=== PATIENT | female | born 1990 | race Caucasian/White ===

== ENCOUNTER 2020-08-22 17:10 | Emergency (ER) | payer BC, SELFPAY ==
[2020-08-22 17:14] VITALS: BP 119/60; PULSE 88; RESP 16; TEMP 36.6; O2SAT 100
[2020-08-22 17:51] LABS: Add Urine Microscopic? YES; Appearance Urine Cloudy (Clear); Bacteria Urine Trace /hpf; Bilirubin Urine Negative (Negative); Blood Urine Negative (Negative); Color Urine Yellow (Yellow); Glucose Urine UA Negative (Negative); Ketones Urine Negative (Negative); Leukocyte Esterase Ur Negative LEU/UL (Negative); Mucus Urine Rare /lpf; Nitrate Urine Negative (Negative); Protein Urine Negative (Negative); RBC Urine 0-2 /hpf (0-2); Specific Grav Ur 1.024 (1.001-1.035); Squamous Epithelial Cell Urine Moderate /hpf (Few); Urobilinogen Urine Negative mg/dL (<2.0); WBC Urine 0-3 /hpf
[2020-08-22 18:02] LABS: Alanine Aminotransferase 17 U/L (4-35); Albumin Level 3.9 g/dL (3.5-5.1); Alkaline Phosphatase 38 U/L (38-126); Anion Gap 7 mmol/L (8-16); Aspartate Amino Transferase 50 U/L (14-36); Bilirubin,Total 0.3 mg/dL (0.2-1.3); Blood Urea Nitrogen 14 mg/dL (7-17); Calcium 9.2 mg/dL (8.4-10.2); Carbon Dioxide 26 mmol/L (22-30); Chloride 103 mmol/L (98-107); Estimated CRCL calculation 157 ml/min; Estimated Glomerular Filt Rate > 60; Glucose 71 mg/dL (65-105); Lipase 60 U/L (23-300); Potassium 3.7 mmol/L (3.4-5.0); Sodium 136 mmol/L (137-145)
[2020-08-22 18:04] LABS: Basophils Percent Auto 0.4 % (0.2-1.2); Eosinophils Absolute Auto 0.1 K/mm3 (0-0.3); Eosinophils Percent Auto 1.5 % (0-4.4); Hematocrit 33.8 % (37.0-47.0); Immature Granulocyte Absolute 0.04 K/mm3 (0.00-0.031); Immature Granulocyte Percent A 0.5 % (0-0.5); Lymphocytes Absolute Auto 1.92 K/mm3 (0.9-3.2); Lymphocytes Percent Auto 26.1 % (18.3-44.2); Mean Corpuscular HGB Conc 32.5 g/dl (32-36); Mean Corpuscular Hemoglobin 27.6 pg (26-34); Mean Corpuscular Volume 84.7 fl (80-100); Mean Platelet Volume 10.6 fl (7.4-10.4); Monocytes Absolute Auto 0.6 K/mm3 (0.1-0.6); Monocytes Percent Auto 8.2 % (2.6-8.5); Neutrophils Absolute Auto 4.7 K/mm3 (1.3-6.7); Neutrophils Percent Auto 63.3 % (45.5-73.1); Platelet Count Result 202 k/mm3 (150-375); Red Blood Count 3.99 M/mm3 (4.2-5.4); Red Cell Distribution Width 13.4 % (11.5-14.5); White Blood Count 7.4 K/mm3 (4.5-10.0)
[2020-08-22 19:02] VITALS: BP 110/65; PULSE 86; RESP 18; O2SAT 100
--- NOTE | 2020-08-22 19:18 | ED.GENADULT ---
HPI - General Adult General Chief complaint: Abdominal Pain Stated complaint: 16 WEEKS PREG, ABD PAIN Time Seen by Provider: 08/22/20 18:06 Source: patient Mode of arrival: ambulatory Limitations: no limitations History of Present Illness HPI narrative: Patient presents for evaluation of left-sided abdominal pain. Symptom onset yesterday. Symptoms have been intermittent. She describes the pain as stabbing and shooting. Pain is rated as 7 out of 10 in severity. She is currently , 16 weeks gestation. She is already had a confirmed IUP per ultrasound during this . She denies any vaginal bleeding, vaginal discharge, urinary symptoms. Reported blood type is A negative.. She has experienced nausea without vomiting. Last bowel movement was yesterday, solid consistency, without the presence of blood or mucus in the stool. G2, P1. Previous delivery was vaginal delivery. Denies hx of abdominal surgeries. She has not taken any medications to assist with her symptoms. She does not drink alcohol. Related Data Home Medications Medication Instructions Recorded Confirmed pmtzbgmxhs-dvjsfkugrsjch-zuxz 1 tablet 08/22/20 Allergies Allergy/AdvReac Type Severity Reaction Status Date / Time No Known Allergies Allergy Unverified 08/22/20 17:46 Review of Systems Review of Systems: Narrative: CONSTITUTIONAL: Denies fever, chills, or sweats. EYES: Denies visual changes, redness, or discharge. ENT: Denies rhinorrhea, congestion, sore throat, or otalgia. CARDIOVASCULAR: Denies chest pain, palpitations, or edema. RESPIRATORY: Denies cough or dyspnea. GASTROINTESTINAL: Reports abdominal pain and nausea without vomiting. Denies diarrhea or constipation GENITOURINARY: Denies dysuria or hematuria. SKIN: Denies rash or itching. MUSCULOSKELETAL: Denies back pain, joint pain, or myalgia. NEUROLOGIC: Denies headache, numbness, dizziness, or weakness. PSYCHIATRIC: Denies anxiety or depression. [facility]LY [facility] Past Medical History Medical History (Updated 08/22/20 @ 21:03 by LUCINA Valentino, SUMAN) Anxiety Migraine Surgical History Surgical History No pertinent past surgical history Family History Family History (Updated 08/22/20 @ 19:24 by LUCINA Valentino, SUMAN) Mother No pertinent past medical history Social History Social History (Updated 08/22/20 @ 19:24 by Deo Mtz, PHOTOGRAPH TINTER, ) Smoking status: Never smoker Alcohol intake: current Substance use: never Living arrangements: with family Gender identity (if verbalized by the patient): Female Sexual Orientation (if Verbalized by the Patient): Straight or Heterosexual Spiritual care concerns: No Exam Narrative: Exam Narrative: GENERAL: Well-appearing, well-nourished, and in no acute distress. HEAD: Normocephalic, atraumatic. EYES: PERRLA and EOMI. ENT: Nares clear, no rhinorrhea or epistaxis. Mucous membranes moist. Oropharynx without tonsillar hypertrophy exudate or other lesions. Bilateral TMs pearly medrano nonbulging NECK: Supple. No adenopathy or masses. No carotid bruits or JVD CHEST: Clear to auscultation. No respiratory distress. No wheezes rales or rhonchi HEART: Regular rate and rhythm. No murmur heard. Normal peripheral pulses. ABDOMEN: Soft, nontender, nondistended, normal active bowel sounds. Gravid uterus EXTREMITIES: Normal range of motion. No edema. SKIN: Warm, dry, no rash. NEURO: No focal deficits. Alert and oriented x3. PSYCH: Normal mood and affect. Course Course Emergency Course: This is a 30-year-old female who presented with complaints of left-sided abdominal pain, currently , 16 weeks gestation with confirmed IUP per ultrasound during this . Blood type is A-. She had no vaginal bleeding. Pelvic exam was not conducted due to lack of vaginal bleeding and vaginal discharge. heart tones were detected at 150 bpm in the emergency dep
[2020-08-22] MEDS: diphenhydrAMINE HCl INJ 50 MG/ML VIAL 25 MG IV PUSH (19:32)
[2020-08-22] MEDS: LACTATED RINGERS 1,000 ML 999 ML IV CONT (19:32)
[2020-08-22 19:35] VITALS: BP 114/46; PULSE 82; RESP 20; O2SAT 100
[2020-08-22 20:55] VITALS: BP 101/52; PULSE 80; RESP 18; O2SAT 100
== END 2020-08-22 21:25 | disposition home or self-care (01) ==
PROVIDERS: Emergency Medicine; Emergency Provider Nurse Practitioner; PCP Internal Medicine
DX: O26.892 Other specified pregnancy related conditions, second trimester (principal); R10.9 Unspecified abdominal pain; Z3A.16 16 weeks gestation of pregnancy
CPT/HCPCS: 36415; 80053; 81001; 83690; 84702; 85025; 96361; 96374; 99284; J1200; J7120

== ENCOUNTER 2021-01-26 18:22 | Observation (INO) | payer BC, SELFPAY ==
[2021-01-26 18:30] VITALS: BMI 38.8
--- NOTE | 2021-01-26 19:34 | OBADM ---
This patient, Ruma Quesada, admitted to the OB room OB Post 112 for observation. Patient/family oriented to hospital policies and general routines including ID bracelet, bed and alarms, visiting hours, pain management, procedures, bathroom and other care routines, personal items, smoking policy, room service/diet, and visiting hours. Patient/Family are encouraged to report perceived risks to care and to ask questions if they do not understand what they are told or what they should do.
[2021-01-26] MEDS: ONDANSETRON HCL ODT 4 MG TABLET PO (19:47)
[2021-01-26 20:12] VITALS: TEMP 36.7
--- NOTE | 2021-01-26 22:28 | PC.NURSE ---
any charting done under piedad jimenez rn done in error.charting done by evette gonzalez rn
--- NOTE | 2021-01-29 10:08 | PM.OBTRLD ---
OB - Triage/Final Diagnosis Visit Information Comments/Additional reasons for admission: I have assessed the risk for this patient, Ruma Quesada, and determined that she would benefit from observation care.
--- NOTE | 2021-02-02 16:21 | PM.OBTRLD ---
OB - Triage/Final Diagnosis Visit Information Reason for evaluation: threatened labor Comments/Additional reasons for admission: I have assessed the risk for this patient, Ruma Quesada, and determined that she would benefit from observation care.
== END 2021-01-26 20:41 | disposition home or self-care (01) ==
PROVIDERS: Admitting Provider Student in an Organized Health Care Education/Training Program; PCP Internal Medicine; Visit Provider Obstetrics & Gynecology
DX: O47.1 False labor at or after 37 completed weeks of gestation (principal); Z3A.38 38 weeks gestation of pregnancy
CPT/HCPCS: A9270; G0378; G0379

== ENCOUNTER 2021-02-02 04:52 | Inpatient (IN) | payer BC, SELFPAY ==
[2021-02-02] VITALS (18 sets, daily range): BP systolic 103–131; BP diastolic 56–84; PULSE 69–93; RESP 12–18; TEMP 36.2–37.1; O2SAT 99; BMI 39.3
[2021-02-02] MEDS: AMPICILLIN 2 GM/NS 100 ML 2 GM/100 ML BAG IVPB (05:29)
[2021-02-02] MEDS: LACTATED RINGERS 1,000 ML 125 ML IV CONT (05:29)
[2021-02-02 05:30] LABS: Basophils Percent Auto 0.4 % (0.2-1.2); Eosinophils Absolute Auto 0.2 K/mm3 (0-0.3); Eosinophils Percent Auto 2.6 % (0-4.4); Hematocrit 35.1 % (37.0-47.0); Hemoglobin 11.3 g/dL (12.0-15.0); Immature Granulocyte Absolute 0.09 K/mm3 (0.00-0.031); Immature Granulocyte Percent A 1.1 % (0-0.5); Lymphocytes Absolute Auto 2.18 K/mm3 (0.9-3.2); Lymphocytes Percent Auto 26.5 % (18.3-44.2); Mean Corpuscular HGB Conc 32.2 g/dl (32-36); Mean Corpuscular Hemoglobin 26.3 pg (26-34); Mean Corpuscular Volume 81.6 fl (80-100); Mean Platelet Volume 11.6 fl (7.4-10.4); Monocytes Absolute Auto 0.6 K/mm3 (0.1-0.6); Monocytes Percent Auto 7.8 % (2.6-8.5); Neutrophils Absolute Auto 5.1 K/mm3 (1.3-6.7); Neutrophils Percent Auto 61.6 % (45.5-73.1); Platelet Count Result 244 k/mm3 (150-375); White Blood Count 8.2 K/mm3 (4.5-10.0)
--- NOTE | 2021-02-02 06:08 | WPDANESEPP ---
Anes - Eval Pre Procedure Procedure: labor epidural Date/Time: 02/02/21 06:08 Surgeon: dora pastrana Pre Op Diagnosis: Induction Patient Data Age: 30 Gender: F Height: 1.63 m Weight: 104 kg Last Vital Signs Temp 36.6 C 02/02/21 05:16 Pulse 76 02/02/21 06:01 BP 116/75 02/02/21 06:01 Allergies Allergy/AdvReac Type Severity Reaction Status Date / Time No Known Allergies Allergy Unverified 08/22/20 17:46 Home Medications Medication Instructions Recorded Confirmed Type prenat.vits,jaime,odq-kejm-ukjox 1 tablet PO DAILY 01/12/21 01/26/21 History ltrijthgze-fwvbvkyeczabu-edig 1 tablet PO Q6H PRN 02/02/21 02/02/21 History [Fioricet] doxylamine-pyridoxine (vit B6) 1 tablet PO DAILY PRN 02/02/21 02/02/21 History [Diclegis] Laboratory Tests 02/02/21 02/02/21 05:13 05:13 WBC 8.2 K/mm3 K/mm3 (4.5-10.0) RBC 4.30 M/mm3 M/mm3 (4.2-5.4) Hgb 11.3 g/dL L g/dL (12.0-15.0) Hct 35.1 % L % (37.0-47.0) MCV 81.6 fl fl (80-100) MCH 26.3 pg pg (26-34) MCHC 32.2 g/dl g/dl (32-36) RDW 14.0 % % (11.5-14.5) Plt Count 244 k/mm3 k/mm3 (150-375) MPV 11.6 fl H fl (7.4-10.4) Immature Gran % (Auto) 1.1 % H % (0-0.5) Neut % (Auto) 61.6 % % (45.5-73.1) Lymph % (Auto) 26.5 % % (18.3-44.2) [place] % (Auto) 7.8 % % (2.6-8.5) Eos % (Auto) 2.6 % % (0-4.4) Baso % (Auto) 0.4 % % (0.2-1.2) Lymph # (Auto) 2.18 K/mm3 K/mm3 (0.9-3.2) [place] # (Auto) 0.6 K/mm3 K/mm3 (0.1-0.6) Eos # (Auto) 0.2 K/mm3 K/mm3 (0-0.3) Baso # (Auto) 0.0 K/mm3 K/mm3 (0.0-0.1) Abs Immat Gran (auto) 0.09 K/mm3 H K/mm3 (0.00-0.031) Absolute Neuts (auto) 5.1 K/mm3 K/mm3 (1.3-6.7) Absolute Nucleated RBC 0.0 K/mm3 K/mm3 (0.0-0.012) Nucleated RBC % 0.0 % % (0.0-0.2) RPR Pending Patient hx anesthesia problems: none Family hx anesthesia problems: none Results Review: All pre-operative results and documents have been reviewed as part of the pre-operative evaluation. [facility] Past Medical History Medical History Anxiety Migraine Surgical History Surgical History No pertinent past surgical history Family History Family History (Updated 01/12/21 @ 14:46 by Aileen Huerta RN) Mother Coronary stent patent Hypertension Sibling Cerebral palsy Social History Social History (Updated 08/22/20 @ 19:24 by Deo Mtz, ENGINEERING INTERN, ) Smoking status: Never smoker Second hand tobacco smoke exposure: No Alcohol intake: current Substance use: never Gender identity (if verbalized by the patient): Female Sexual Orientation (if Verbalized by the Patient): Straight or Heterosexual Spiritual care concerns: No Exam Day of Procedure 02/02/21 06:08
[2021-02-02 06:26] LABS: Rapid Plasma Reagin Non-Reactive (NonReactive)
[2021-02-02] MEDS: OXYTOCIN 30 UNITS/NS 500 ML 30 UNITS/500 ML BAG IV CONT (06:32)
--- NOTE | 2021-02-02 07:44 | PM.IMHP ---
H&P: HPI History of Present Illness Date/Time: 02/02/21 07:44 30-year-old 2 para 1 with last menstrual period of 05/04/2020, EDC of 1820 by [facility] week ultrasound presents at term for induction of labor. She is positive for group B strep and has received 1 dose of antibiotic her has otherwise been uncomplicated. Her cervix is very favorable Chief Complaint: term /group B strep positive/medical induction of labor Review of Systems Review of Systems: All systems reviewed & are unremarkable except as noted in HPI and below PMFSH Past Medical History Medical History Anxiety Migraine Surgical History Surgical History No pertinent past surgical history Family History Family History Mother Coronary stent patent Hypertension Sibling Cerebral palsy Social History Social History Smoking status: Never smoker Second hand tobacco smoke exposure: No Alcohol intake: current Substance use: never Gender identity (if verbalized by the patient): Female Sexual Orientation (if Verbalized by the Patient): Straight or Heterosexual Spiritual care concerns: No Meds Home Medications and Allergies Home Medications Medication Instructions Recorded Confirmed Type prenat.vits,jaime,lvy-hikc-kimmh 1 tablet PO DAILY 01/12/21 01/26/21 History amxzvwcnvq-irnlatpgmetzv-zcmy 1 tablet PO Q6H PRN 02/02/21 02/02/21 History [Fioricet] doxylamine-pyridoxine (vit B6) 1 tablet PO DAILY PRN 02/02/21 02/02/21 History [Diclegis] Allergies Allergy/AdvReac Type Severity Reaction Status Date / Time No Known Allergies Allergy Unverified 08/22/20 17:46 Vital Signs Vital Signs - 24 hr 02/02/21 05:16 02/02/21 05:40 02/02/21 06:01 Temperature 97.8 F Pulse Rate 82 76 Blood Pressure 114/70 116/75 02/02/21 06:31 02/02/21 06:34 02/02/21 07:01 Temperature 97.1 F L Pulse Rate 89 69 Blood Pressure 117/72 113/76 02/02/21 07:31 Temperature Pulse Rate 78 Blood Pressure 106/56 L Exam Const: General: no acute distress Eyes: General: appearance normal, both eyes and all related structures Neck: Neck: supple and no JVD Thyroid: thyroid normal Resp: Effort & Inspection: normal respiratory effort Auscultation: clear to auscultation bilaterally Cardio: Rate: regular rate Rhythm: regular rhythm GI: Inspection: non-distended GI Palp: Yes Soft to palpation, No Tenderness to palpation present (GI) and No Guarding due to palpation present (GI) Auscultation: normal bowel sounds : External Female Exam: normal external appearance Speculum Exam - Vagina: normal appearance of the vagina Speculum Exam - Cervix: Cervical os closed ( cervix 4/80/1. AROM clear. FHTs reassuring) Skin: General skin exam: no rashes or lesions noted Extrem: General: normal to inspection and no edema Psych: Mental Status: mental status grossly normal Affect: normal affect H&P: Results Labs Labs: Short CBC 02/02/21 Range/Units 05:13 WBC 8.2 (4.5-10.0) K/mm3 Hgb 11.3 L (12.0-15.0) g/dL Hct 35.1 L (37.0-47.0) % Plt Count 244 (150-375) k/mm3 Assessment and Plan Additional Plan impression: Term with advanced cervical dilatation and group B strep positive Plan: Group B strep prophylaxis. Medical induction of labor. Spontaneous vaginal delivery is expected. She has an epidural candidate
[2021-02-02] MEDS: AMPICILLIN 1 GM/NS 50 ML 1 GM/50 ML BAG IVPB (09:23)
--- NOTE | 2021-02-02 09:47 | PM.OBPRVD ---
OB - Delivery Note Procedure Delivery date: 02/02/21 Procedure: mil/gbs prophylaxis Intrapartal events: None Induction method: AROM Delivery augmentation: pitocin Delivery monitor: external FHT Route of delivery: Episiotomy description: None Laceration Description: None Quantitative Blood Loss (ml): 158 Anesthesia type: None Disposition: floor Complications: amp x 2 [place] Baby Date of : 02/02/21 Time of : 09:40 Weeks of gestation at delivery: 39 gender: Male Weight (pounds): 8 Weight (ounces): 5 presentation: vertex position: Right Occiput Anterior Placenta delivery description: Spontaneous cord vessel description: 3 Vessels score one minute: 9 score five minutes: 9
[2021-02-02] MEDS: IBUPROFEN 600 MG TABLET (09:57)
[2021-02-02] MEDS: OXYTOCIN 30 UNITS/NS 500 ML 30 UNITS/500 ML BAG 125 UNITS IV CONT (10:40)
--- NOTE | 2021-02-02 12:15 | PC.NURSE ---
Consult with pt., mother reports tenderness with feeding. Mother has to breast in cradle with shallow latch reporting tenderness. Suggested mother release latch and use cross cradle to assist with deeper latch. Reviewed positioning/alignment in cross cradle, holding breast in ?U? hold and guided asymmetrical latch on. Reviewed rational for each. able to latch correctly within a few attempts. nursed eagerly with steady draws and occasional swallowing noted, some pausing noted. Reviewed signs of a correct latch, effective nursing and suck swallow ratio. Suggested mother stimulate while feeding to increase stimulate, increase intake and to assist with maintaining deep latch. Infant would slip to shallow latch causing tenderness. Demonstrated how to adjust latch more deeply while feeding if needed. Mother reports she can feel the difference in latch with less tenderness. Mother would release latch and infant would slip to shallow latch. Advised to hold breast during entire feeding to assist with maintaining deep latch for her comfort and increased intake. Mother chose not to hold breast. Nipple care reviewed of lanolin after feedings, warm compresses as needed.
--- NOTE | 2021-02-02 12:35 | PC.NURSE ---
Consult with pt., upon entering mother has infant to breast in cradle with a slightly shallow latch. Reviewed positioning/alignment in cross cradle, holding breast in ?U? hold and guided asymmetrical latch on. Reviewed rational for each. nursed eagerly with steady draws and occasional swallowing noted, some pausing noted. Reviewed signs of a correct latch, effective nursing and suck swallow ratio. Suggested mother stimulate while feeding to increase stimulate, increase intake and to assist with maintaining deep latch. Infant would slip to shallow latch causing tenderness. Demonstrated how to adjust latch more deeply while feeding if needed. Mother reports she can feel the difference in latch with less tenderness. Mother prefers cradle and does not wish to switch to cross cradle Reviewed infant feeding cues, frequencies, duration of feedings, feeding elimination flow sheet, and signs of adequate intake. Demonstrated stimulation techniques to wake infant for feeding. Nipple care reviewed of lanolin after feedings, warm compresses as needed. Instructed mother to call out for RN assistance if she is unable to latch for feeding or she has discomfort with nursing. Instructed feeding should be initiated three hours from start of last feeding or if feeding cues are noted before. Mother voiced understanding of information shared.
--- NOTE | 2021-02-02 13:39 | OBPPTRN ---
1155 Patient transferred to post room #287 via W/C. Support person present. Oriented to unit, room, information board, rooming in, admission packet and security measures. Patient verbalizes understanding.
[2021-02-02] MEDS: IBUPROFEN 600 MG TABLET PO (17:20)
[2021-02-03 04:20] VITALS: BP 109/68; PULSE 91; RESP 18; TEMP 36.8
[2021-02-03 05:15] LABS: Hematocrit 30.5 % (37.0-47.0); Hemoglobin 9.6 g/dL (12.0-15.0)
--- NOTE | 2021-02-03 07:30 | PC.NURSE ---
PT introductions made and plan of care discussed per post , pain management, breast feeding, daily care activities and pending discharge to home. PT verbalized understanding of such care. PT received instructions and education per one to one discussion, mom baby care guide and demonstrations through out this shift. PT and spouse both recipients of such instructions and no barriers to learning identified at this time.
--- NOTE | 2021-02-03 07:48 | PM.DS ---
DS: Admitting Diagnosis Discharge Date Admitting Diagnosis Term with positive group B strep DS: Summary Hospital Course Hospital Course: Patient was admitted for induction of labor. She was positive for group B strep and was adequately prophylaxed. She underwent spontaneous vaginal delivery. Her hospital course was unremarkable. She remained afebrile and was without complaints Time Spent with Patient Time attestation: Total time spent providing and/or coordinating discharge services: Exam Const: General: no acute distress Eyes: General: appearance normal, both eyes and all related structures Neck: Neck: supple and no JVD Thyroid: thyroid normal Resp: Effort & Inspection: normal respiratory effort Auscultation: clear to auscultation bilaterally Cardio: Rate: regular rate Rhythm: regular rhythm GI: Inspection: non-distended GI Palp: Yes Soft to palpation, No Tenderness to palpation present (GI) and No Guarding due to palpation present (GI) Auscultation: normal bowel sounds : General: Yes bladder normal to palpation External Female Exam: normal external appearance Speculum Exam - Vagina: normal vaginal discharge and No vaginal bleeding Speculum Exam - Cervix: nontender Bimanual exam- vagina & uterus: bladder normal to palpation and No Cervical tenderness present OB/external & speculum: No vaginal bleeding Skin: General skin exam: no rashes or lesions noted Extrem: General: normal to inspection and no edema Psych: Mental Status: mental status grossly normal Affect: normal affect DS: Data Data Completed and Pending Labs on day of discharge: Labs from last 24 hours 02/03/21 03:49 Hgb 9.6 L Hct 30.5 L Discharge Plan Discharge Attending physician on discharge: Kong Goodwin Discharging Clinician: Kong Goodwin Patient Disposition: Home, Self-Care Activity: may shower, no straining and pelvic rest Diet: heart healthy Patient Instructions: Antibiotic Form Stand Alone Forms: General Discharge Information Follow-up/Referrals: Kong Goodwin MD [Physician] - Discharge Medications: Continued prenat.vits,jaime,rcf-vhvj-leqwc Tablet 1 tablet PO DAILY RF: 0 owrjzxnqza-yogmztcmzrveh-zlzm [Fioricet] 50-325-40 mg Tablet 1 tablet PO Q6H PRN (Reason: Nausea) RF: 0 doxylamine-pyridoxine (vit B6) [Diclegis] 10-10 mg tablet,delayed release (/EC) 1 tablet PO DAILY PRN (Reason: nausea) RF: 0 Date of admission: 02/02/21 04:52 Primary Care Provider: Mason Jimenez Admitting Provider: Kogn Goodwin Attending physician on admission: Kong Goodwin Condition: Stable
[2021-02-03 08:00] VITALS: BP 107/65; PULSE 76; RESP 18; TEMP 36.7; O2SAT 99
[2021-02-03 09:40] VITALS: PULSE 76; RESP 18; O2SAT 99
[2021-02-03] MEDS: MULTIVIT/MIN/PREN/FOL AC/IRON TABLET 1 TAB PO (09:41)
[2021-02-03] MEDS: POLYSACCHARIDE IRON COMPLEX 150 MG CAPSULE PO (09:41)
[2021-02-03] MEDS: DOCUSATE SODIUM 100 MG CAPSULE PO (09:41)
[2021-02-03] MEDS: ACETAMINOPHEN 325 MG TABLET 650 MG PO (09:42)
[2021-02-03] MEDS: IBUPROFEN 600 MG TABLET PO (09:42)
--- NOTE | 2021-02-03 11:10 | PC.NURSE ---
Consult with pt., mother would like to be evaluated for tongue and lip tie. FOB has a daughter with a tied tongue and mother states her daughter has a tight upper lip. is able to freely thrust tongue past gum ridge and flange both lips, slight recessed chin. Skin is intact on both nipples, no redness and bruising noted. Reviewed feeding cues, frequencies, duration of feedings, feeding elimination flow sheet, and signs of adequate intake. Demonstrated stimulation techniques to wake infant for feeding. Assisted with infant to breast. Reviewed positioning/alignment in cross cradle, holding breast in ?U? hold and guided asymmetrical latch on. Reviewed rational for each. Mother chooses to use cradle to latch able to latch slightly shallow within a few attempts. nursed eagerly with steady draws and occasional swallowing noted, some pausing noted. Reviewed signs of a correct latch, effective nursing and suck swallow ratio. Suggested mother stimulate while feeding to increase stimulate, increase intake and to assist with maintaining deep latch. Infant would slip to shallow latch causing tenderness. Demonstrated how to adjust latch more deeply while feeding if needed. Mother reports she can feel the difference in latch with less tenderness. Nipple care reviewed of lanolin after feedings, warm compresses as needed. Instructed mother to call out for RN assistance if she is unable to latch infant for feeding or she has discomfort with nursing. Instructed feeding should be initiated three hours from start of last feeding or if feeding cues are noted before. Mother voiced understanding of information shared. Mother states she plan son discharge later this day. Mother is feeding as required and waking to feed if needed. has had at least 8 effective feedings in the past 24 hours, and is currently meeting outcomes for weight, output, jaundice and feeding frequencies. Mother states she feels confident to continue effective at home. Reviewed transition to breast milk, signs of adequate intake, and engorgement/relief. Instructed to call ICP if intake/output less than required. Reviewed regular medications mother is taking. Information provided per Aileen. Reviewed community resources on the [employer] website and in the Mom/Baby guide. Information on outpatient services provided. Mother has no further questions at this time.
[2021-02-03] MEDS: LANOLIN (LANSINOH) 7.5 GM CREAM 1 APPLIC TOPICAL (11:54)
--- NOTE | 2021-02-03 13:40 | PC.NURSE ---
Addendum entered by Jose Antonio Burgos RN 02/03/21 14:47: actual discharge instructions were given at 1315 Original Note: PT received discharge instructions per protocol and verbalized understanding of such care. Patient viewed the discharge video Mother & Baby Care, The First Two Weeks . Patient was given the opportunity and encouraged to ask questions. Patient verbalized understanding of information shared and has been given the mother/baby guide for home reference.
--- NOTE | 2021-02-03 13:40 | PC.NURSE ---
PT discharged to home via ambulatory accompanied by spouse and and taken to waiting car. Follow up appts confirmed
[2021-02-04 10:28] VITALS: BP 117/61; PULSE 84; RESP 20; TEMP 36.9; O2SAT 100
== END 2021-02-03 13:40 | disposition home or self-care (01) | DRG 807 ==
LOC: ANHLDR 04:54 → ANHOB2 12:40
PROVIDERS: Admitting Provider Obstetrics & Gynecology; PCP Internal Medicine; Visit Provider Obstetrics & Gynecology
DX: O99.824 Streptococcus B carrier state complicating childbirth (principal); Z37.0 Single live birth; Z3A.39 39 weeks gestation of pregnancy; O62.3 Precipitate labor; O99.344 Other mental disorders complicating childbirth; F41.9 Anxiety disorder, unspecified
CPT/HCPCS: 36415; 85014; 85018; 85025; 86592; 86850; 86900; 86901; A9270; J0290; J2590; J7120

== ENCOUNTER 2022-04-17 16:23 | Emergency (ER) | payer BC, SELFPAY ==
[2022-04-17 16:33] VITALS: BP 119/67; PULSE 77; RESP 16; TEMP 36.9; O2SAT 100
--- NOTE | 2022-04-17 17:17 | ED.EYEPROB ---
HPI - Eye Problem General Chief complaint: Eye Problems Stated complaint: Eye Problem Time Seen by Provider: 04/17/22 17:17 Source: patient, RN notes reviewed and old records reviewed Mode of arrival: ambulatory Limitations: no limitations History of Present Illness HPI Narrative: 32-year-old female who presents to [facility] accompanied by and child with 3 day history of bilateral eye redness itching watering with some blurry vision.. Patient has bilateral scleral redness redness and has noted crusting in the morning along her lashes and purulent eye drainage, patient denies any fevers. Patient denies any acute sharp pain to her eyes. Patient states son has some eye drainage last week but he was put on antibiotic for ear infection and his eyes cleared. She states that she has used some multisymptom Visine eye drops. chief complaint: eye redness Onset (ago): day(s) (3 days of symptoms) Duration: constant and progressively worsening Location: both eyes Treatments Prior to Arrival: OTC eye drops Related Data Allergies Allergy/AdvReac Type Severity Reaction Status Date / Time No Known Allergies Allergy Unverified 04/17/22 17:24 Review of Systems Review of Systems: CONSTITUTIONAL: Denies fever, chills, or sweats. EYES: Denies visual changes. Reports redness,, irritation, discharge, bilateral eyes ENT: Denies rhinorrhea, congestion, sore throat, or otalgia. CARDIOVASCULAR: Denies chest pain, palpitations, or edema. RESPIRATORY: Denies cough or dyspnea. SKIN: Denies rash or itching. NEUROLOGIC: Denies headache All systems reviewed & are unremarkable except as noted in HPI and below PMFSH Past Medical History Medical History Anxiety Migraine Surgical History Surgical History No pertinent past surgical history Family History Family History Mother Coronary stent patent Hypertension Sibling Cerebral palsy Social History Social History Smoking status: Never smoker Second hand tobacco smoke exposure: No Alcohol intake: current Substance use: never Gender identity (if verbalized by the patient): Female Sexual Orientation (if Verbalized by the Patient): Straight or Heterosexual Spiritual care concerns: No Comments At time of signature, agree with nursing past medical, surgical, social and family history. There is no relevant family history pertinent to the presenting complaint Exam Narrative: GENERAL: Well-appearing, well-nourished, and in no acute distress. HEAD: Normocephalic, atraumatic. EYES: PERRLA and EOMI. Upper and lower eyelids unremarkable. No periorbital cellulitis noted. Sclera and conjunctivae injected bilateral eyes with stated purulent drainage. ENT: Nares clear, no rhinorrhea or epistaxis. Mucous membranes moist. NECK: Supple.no lymphadenopathy CHEST: Clear to auscultation. No respiratory distress. HEART: Regular rate and rhythm. No murmur heard. Normal peripheral pulses. SKIN: Warm, dry, no rash. NEURO: No focal deficits. Alert and oriented x3. Course Course Emergency Course: Patient is aware of diagnosis, understands and agrees to treatment plan. Anticipatory guidance given. Patient agrees to follow-up as directed and is aware of reasons to seek care at the emergency department. Portions of this record may have been created with voice recognition software Level of Care: Express Care Visit Vital Signs Vital signs: Vital Signs Temperature 36.9 C 04/17/22 16:33 Pulse Rate 77 04/17/22 16:33 Respiratory Rate 16 04/17/22 16:33 Blood Pressure 119/67 04/17/22 16:33 Pulse Oximetry 100 04/17/22 16:33 Oxygen Delivery Room Air 04/17/22 16:33 Temperature 36.9 C 04/17/22 16:33 Pulse Rate 77 04/17/22 16:33 Respiratory Rate 16
== END 2022-04-17 17:30 | disposition home or self-care (01) ==
PROVIDERS: Emergency Provider Registered Nurse
DX: H10.33 Unspecified acute conjunctivitis, bilateral (principal)
CPT/HCPCS: 99213; G0463

== ENCOUNTER 2023-02-17 01:15 | Day surgery (SDC) | payer BC, SELFPAY ==
--- NOTE | 2023-02-09 17:16 | PC.NURSE ---
Report to the Outpatient Waiting Room, entrance under the green pavilion located off [facility], at time 0630 on date 02/17/23. Planned Procedure Time: 0830. Time changes happen often and if your time is changed the preop area will call you the afternoon before. - You and your visitor will be asked to self-screen and do not enter if you have any COVID symptoms. - A mask is optional within the hospital at this time. Patients may have clear liquids (water, carbonated beverages, clear teas, apple juice) until 3 hours prior to surgery with a maximum of 20 ounces. 0530 - No food from midnight until time of surgery - Infants may have breast milk until 4 hours before surgery, formula 6 hours prior to surgery. - Children will be allowed to drink immediately following surgery. If applicable, please bring a bottle or sippy cup to assist with drinking. Juice, water, soda, and popsicles are readily available. For infants on formula, please bring formula the day of surgery. Pacifiers are allowed. Take the following medications with a SIP of water the morning of surgery: CONTROL, TOPIRAMATE, VENLAFAXINE, RIZATRIPTAN DO NOT STOP ANY OF YOUR OTHER PRESCRIPTION MEDICATIONS PRIOR TO SURGERY ?EXCEPT THE FOLLOWING Medications to discontinue per physician N/A Date to take last dose N/A Please no make-up, nail palestinian, hairspray, perfume, deodorant, or body powder the day of surgery. No jewelry (including any body piercings) or valuables the day of surgery, leave them at home. Please take a shower or bath the night before, or the morning of, surgery with an antibacterial soap. Wear comfortable, loose fitting clothing. Children are encouraged to wear pajamas. - Jewelry must be removed prior to entering the operating room. Rings and piercings that are not removed may be cut off. - The hospital will not accept responsibility for valuables. - Please leave all valuables, including medications, at home the day of surgery. If you are going home after surgery, a licensed hazmat cdl a driver must drive you home. - NO public transportation without another adult if you receive anesthesia. - We recommend that an adult stay with you for 24 hours following discharge. - We also recommend that you do not drive, make important decision, drink alcoholic beverages, or take any drugs that were not prescribed by your health care provider for at least 24 hours after your discharge time. For Pediatric surgeries, we recommend two adults accompany the child home. Follow any additional instructions given to you from your surgeon. If you or anyone in your household have experienced Covid symptoms in the past week, please notify your surgeon or the nurse liaison at the phone number below for possible testing. Telephone instructions given to PATIENT- CALE TAYLOR and asked if any additional questions and then verbalized understanding. Patient advised to call surgeon office or pre surgery nurse liaison [phone] if any additional questions.
[2023-02-09 17:26] VITALS: BMI 27.3
--- NOTE | 2023-02-14 07:39 | PM.IMHP ---
H&P: HPI History of Present Illness Date/Time: 02/14/23 07:39 Chief Complaint: Sterilization Narrative: This is 33 year old multiparous patient who desires permanent and irreversible sterilization. Alternatives including but not exclusive of pills, patches, injections, long-term implants, etc. were reviewed. She opts for permanent irreversible sterilization. She understands at 3 and at 1000 failure rate with the subsequent risk of ectopic bleeding and . She understands the irreversibility as well. She received the [employer] handout entitled sterilization for men and women. She had all questions answered. She asked to proceed PMFSH Past Medical History Medical History Anxiety Migraine Surgical History Surgical History No pertinent past surgical history Family History Family History Mother Coronary stent patent Hypertension Sibling Cerebral palsy Social History Social History Smoking status: Never smoker Second hand tobacco smoke exposure: No Alcohol intake: current Substance use: never Living arrangements: with family Gender identity (if verbalized by the patient): Female Sexual Orientation (if Verbalized by the Patient): Straight or Heterosexual Spiritual care concerns: No Meds Home Medications and Allergies Home Medications Medication Instructions Recorded Confirmed Type norethindrone (contraceptive) 0.35 0.35 mg PO DAILY 02/09/23 02/09/23 History mg tablet (Jencycla) rizatriptan 10 mg disintegrating 10 mg PO TID PRN Migraine Headache 02/09/23 02/09/23 History tablet topiramate 25 mg tablet 25 mg PO BID 02/09/23 02/09/23 History venlafaxine 37.5 mg 37.5 mg PO DAILY 02/09/23 02/09/23 History capsule,extended release 24 hr Allergies Allergy/AdvReac Type Severity Reaction Status Date / Time No Known Allergies Allergy Verified 02/09/23 17:06 Exam Const: General: cooperative, healthy appearing and comfortable Nutritional Appearance: average body habitus Orientation/consciousness: oriented to person, oriented to place and oriented to time HENMT: Head: normal to inspection Resp: Effort & Inspection: normal respiratory effort Cardio: Rate: regular rate Rhythm: regular rhythm Heart sounds: S1 normal heart sound present and S2 normal heart sound present GI: Inspection: normal to inspection : External Female Exam: normal external appearance Speculum Exam - Vagina: normal appearance of the vagina Speculum Exam - Cervix: normal appearance of the cervix Bimanual exam- vagina & uterus: uterine shape normal Bimanual Exam- Adnexa, other: normal adnexae Assessment and Plan Assessment and plan (1) Sterilization: Code(s): Z30.2 - Encounter for sterilization Status: Acute Plan scopic bilateral tubal ligation
[2023-02-17] VITALS (7 sets, daily range): BP systolic 112–126; BP diastolic 72–86; PULSE 60–80; RESP 14–21; TEMP 36.2–37; O2SAT 100; BMI 26.6
--- NOTE | 2023-02-17 06:33 | WPDHPUPDATE1 ---
History and Physical Update Update Date/Time: 02/17/23 06:33 History and Physical has been reviewed, including an updated exam of the patient. There are NO changes in the patient's condition. Risks, benefits, and alternatives have been discussed and questions answered. Patient agrees to proceed with procedure.
[2023-02-17] MEDS: LACTATED RINGERS 1,000 ML 30 ML IV CONT (07:35)
[2023-02-17] MEDS: ACETAMINOPHEN 500 MG TABLET 1000 MG PO (07:46)
[2023-02-17] MEDS: KETOROLAC 15 MG/ML VIAL (*BKC) IV PUSH (07:46)
--- NOTE | 2023-02-17 08:02 | P.PNAN_ITS ---
Anes - Initial Pre Proc Eval Procedure: Operation Date: 02/17/23 08:30 Proposed Procedures p Laparoscopic Bilateral Tubal Sterilization with Fallopian Rings - Kong Luciano MD Date/Time: 02/17/23 08:02 Surgeon: Kong Luciano MD Pre Op Diagnosis: desires sterilization Patient Data Age: 33 Gender: F Height: 1.63 m Weight: 70.4 kg Last Vital Signs Temp 98.6 F 02/17/23 06:35 Pulse 80 02/17/23 06:35 Resp 16 02/17/23 06:35 BP 112/72 02/17/23 06:35 Pulse Ox 100 02/17/23 06:35 O2 Del Method Room Air 02/17/23 06:35 Allergies Allergy/AdvReac Type Severity Reaction Status Date / Time No Known Allergies Allergy Verified 02/17/23 07:53 Home Medications Medication Instructions Recorded Confirmed Type norethindrone (contraceptive) 0.35 0.35 mg PO DAILY 02/09/23 02/09/23 History mg tablet (Jencycla) rizatriptan 10 mg disintegrating 10 mg PO TID PRN Migraine Headache 02/09/23 02/09/23 History tablet topiramate 25 mg tablet 25 mg PO BID 02/09/23 02/09/23 History venlafaxine 37.5 mg 37.5 mg PO DAILY 02/09/23 02/09/23 History capsule,extended release 24 hr hydrocodone 5 mg-acetaminophen 325 1 tablet PO Q4H PRN pain #20 tabs 02/17/23 Rx mg tablet Patient hx anesthesia problems: none Family hx anesthesia problems: none Results Review: All pre-operative results and documents have been reviewed as part of the pre- operative evaluation. [facility] Past Medical History Medical History Anxiety Migraine Surgical History Surgical History No pertinent past surgical history Family History Family History Mother Coronary stent patent Hypertension Sibling Cerebral palsy Social History Social History Smoking status: Never smoker Second hand tobacco smoke exposure: No Alcohol intake: current Substance use: never Living arrangements: with family Gender identity (if verbalized by the patient): Female Sexual Orientation (if Verbalized by the Patient): Straight or Heterosexual Spiritual care concerns: No Anes - Eval Final PreProcedure Day of Procedure 02/17/23 08:02 Patient weight: normal Heart: regular rate and rhythm Lungs: clear to auscultation Airway: Mallampati scale class II Neurological: alert and oriented Last oral intake: >/= 8 hours ASA classification: II Emergent: no Anesthetic plan: proceed Anesthesia type and monitoring: general ETT and standard monitoring Results Review: All pre-operative results and documents have been reviewed as part of the pre- operative evaluation. Informed Consent: The patient's anesthetic plan and its attendant risks and benefits were discussed with the patient/family/POA. Questions were solicited and answers provided to the satisfaction of the patient/family/POA.
--- NOTE | 2023-02-17 08:24 | WPDHPUPDATE1 ---
History and Physical Update Update Date/Time: 02/17/23 08:24 History and Physical has been reviewed, including an updated exam of the patient. There are NO changes in the patient's condition. Risks, benefits, and alternatives have been discussed and questions answered. Patient agrees to proceed with procedure. will be done with rings
--- NOTE | 2023-02-17 08:54 | P.OP_ITS ---
Procedure Note - Detailed Date of Procedure 02/17/23 Pre-op Diagnosis desires sterilization Post-op Diagnosis Same Procedure Performed Laparoscopic bilateral tubal ligation with rings Surgeon Kong Luciano MD Anesthesia General Indications Since 33-year-old female desires permanent sterilization Findings Normal-appearing uterus ovaries and tubes. Normal-appearing appendix and gallbladder and liver edge Description of Procedure Patient was prepped draped in the normal sterile fashion placed in the dorsal lithotomy position. Under excellent general trach anesthesia weighted speculum placed posterior fornix vagina. Anterior lip of the cervix grasped with single- tooth tenaculum. Le cannula inserted cervix that to the single-tooth. This was to be used later for uterine manipulation. The bladder emptied of clear urine [id number]. Weighted speculum was removed. The gloves were changed. An infraumbilical incision made the Veress needle passed in the abdomen. Abdomen filled with CO2 gas to 15mm Hg. The 5mm trocar advanced under direct visualization without disc open no injury seen. Patient placed in Trendelenburg and a suprapubic incision made. The 8mm trocar advanced under direct visualization assuring no injury. There was [id number] of serosanguineous fluid the cul-de-sac and this was suction removed. Fallopian tubes and ovaries appeared within normal limits. The left fallopian tube was grasped and a good knuckle of tube formed with excellent blanching the opposite tube was grasped with a good knuckle of tube formed with excellent blanching. Photo documentation was undertaken. Lower site removed the gas removed from the abdomen. The upper site removed the incisions closed with 4 Monocryl and glue patient was awakened went recovery in satisfactory condition. All sponge, needle, instrument counts were correct. There were no immediate complications Estimated Blood Loss 5 Drains No Packing No Pathology None sent Complications No immediate complications Condition Stable
== END 2023-02-17 10:45 | disposition home or self-care (01) ==
PROVIDERS: PCP Internal Medicine; Visit Provider Obstetrics & Gynecology
PROC: (CPT 58671; principal; 2023-02-17 08:30)
DX: Z30.2 Encounter for sterilization (principal); F41.9 Anxiety disorder, unspecified
CPT/HCPCS: 58671; A4264; A9270; J0330; J1100; J1885; J2250; J2405; J2704; J3010; J7120